=== PATIENT | male | born 1990 | race Caucasian/White ===

== ENCOUNTER 2019-04-17 17:26 | Emergency (ER) | payer MEDICAID, OTHER ==
[~2019-04-17] VITALS: Ht 198.1 cm; Wt 91.0 kg
--- NOTE | 2019-04-17 18:18 | NUR ---
The patient presented for an assessment with parents after he has been having voices for the past 5 days. He feels he has an implant behind his ear. He is cooperative or anxious. Family hx of schizophrenia. He denies command voices.
[2019-04-17 18:32] LABS: BASOPHILS % (AUTO) 0.4 % (0-1); EOSINOPHILS % (AUTO) 0.3 % (0-6); HEMATOCRIT 41.2 % (42.0-52.0); HEMOGLOBIN 14.2 g/dl (14.0-17.9); LYMPHOCYTES # (AUTO) 2.1 X10'3 (1.1-4.8); LYMPHOCYTES % (AUTO) 31.1 % (21-51); MEAN CORPUSCULAR HEMOGLOBIN 33.8 PG (27.0-31.0); MEAN CORPUSCULAR HGB CONC 34.5 g/dL (33.0-36.5); MEAN CORPUSCULAR VOLUME 97.8 FL (78-98); MEAN PLATELET VOLUME 8.5 FL (7.4-10.4); MONOCYTES % (AUTO) 14.3 % (2-12); NEUTROPHILS # (AUTO) 3.6 X10'3 (1.8-7.7); NEUTROPHILS % (AUTO) 53.9 % (42-75); PLATELET COUNT 231 X10'3 (140-440); RED BLOOD COUNT 4.21 X10'6 (4.70-6.10); RED CELL DISTRIBUTION WIDTH 12.9 % (11.5-14.5); WHITE BLOOD COUNT 6.6 X10'3 (4.5-11.0)
[2019-04-17 18:48] LABS: ALANINE AMINOTRANSFERASE 28 U/L (12-78); ALBUMIN 4.4 G/DL (3.4-5.0); ALBUMIN/GLOBULIN RATIO 1.1 (1.1-1.5); ALKALINE PHOSPHATASE 65 IU/L (46-116); ANION GAP 10 (8-16); ASPARTATE AMINO TRANSFERASE 22 U/L (10-37); BILIRUBIN,TOTAL 1.1 MG/DL (0.1-1.0); BLOOD UREA NITROGEN 14 MG/DL (7-18); BUN/CREATININE RATIO 13.6 (5.4-32.0); CHLORIDE 106 MMOL/L (99-107); CREATININE 1.03 MG/DL (0.60-1.10); GLUCOSE 112 MG/DL (70-104); POTASSIUM 3.8 MMOL/L (3.5-5.1); SODIUM 143 MMOL/L (135-145); TOTAL CARBON DIOXIDE 27.3 MMOL/L (24-32); TOTAL PROTEIN 8.4 G/DL (6.4-8.2); eGFR 86 ML/MIN
[2019-04-17 18:58] LABS: ETHANOL < 0.010 GM/DL (0.0-0.010)
[2019-04-17] MEDS ORDERED: LORazepam 1 MG tablet PO ONE (19:45)
[2019-04-17] MEDS ORDERED: QUETIAPINE 200 MG TAB.SR.24H PO ONE (19:45)
[2019-04-17] MEDS ORDERED: quetiapine 100mg tablet PO STA (19:50)
[2019-04-17 19:55] LABS: CLARITY,URINE CLOUDY (Clear); COLOR,URINE YELLOW (Yellow); GLUCOSE, URINE NEGATIVE (Neg); KETONES,URINE TRACE mg/dl (Neg); LEUKOCYTE ESTERASE ,URINE NEGATIVE (Neg); NITRITES, URINE NEGATIVE (Neg); OCCULT BLOOD,URINE NEGATIVE (Neg); PH,URINE 8.5 (4.8-8.0); PROTEIN,URINE NEGATIVE (Neg); UROBILINOGEN,URINE 0.2 E.U/dL (0.2-1.0)
[2019-04-17 20:08] LABS: UA COLLECTION TYPE VOIDED
[2019-04-17 20:13] LABS: BACTERIA,URINE 1+ /HPF (Neg); MUCUS STRANDS FEW /LPF (Neg); RBC,URINE NONE SEEN /HPF (0-2); SQUAMOUS EPITHELIAL CELL,UR FEW /LPF (FEW); WBC,URINE NONE SEEN /HPF (0-4)
[2019-04-17 20:14] LABS: AMORPHOUS PHOSPHATES 4+; SPERM MODERATE /HPF (NEGATIVE)
--- NOTE | 2019-04-17 20:14 | NUR ---
[place] [facility] [place]
[2019-04-17 20:17] LABS: URINE AMPHETAMINE SCREEN POSITIVE (Neg); URINE BARBITUATE SCREEN NEGATIVE (Neg); URINE BENZODIAZEPINES SCREEN NEGATIVE (Neg); URINE CANNABINOID SCREEN POSITIVE (Neg); URINE COCAINE SCREEN NEGATIVE (Neg); URINE METHADONE SCREEN NEGATIVE (Neg); URINE OPIATE SCREEN NEGATIVE (Neg); URINE PHENCYCLIDINE SCREEN NEGATIVE (Neg)
--- NOTE | 2019-04-17 20:32 | NUR ---
pt packet faxed to [facility]
--- NOTE | 2019-04-17 20:41 | NUR ---
The patient is very disorganized and paranoid. He did accept ativan 2mg and Seroquel 200mg. He is very distracted but guarded about the information he is sharing because he does not want to stay here. He told his father that he believes the staff are going to steal his penis. He has no insight and is convinced that he has an implant by his ear and that someone he knows is playing a prank on him.
--- NOTE | 2019-04-17 20:49 | NUR ---
[facility] OFF[facility] CALLED AND THER [facility] NEEDS CONTACT INFORMATION, INSURANCE INFORMATION AND PATIENT'S SOCIAL SECURITY NUMBER. PRIMARY RN SANJEEV DOES NOT WANT TO BOTHER THE PARENTS AT THIS TIME. THE FATHER IS OUTSIDE THE PATIENT'S ROOM ON HIS CELL. PER SANJEEV, THE "PACKET CAN BE UPDATED IN THE AM"
--- NOTE | 2019-04-17 21:00 | NUR ---
[facility] is interviewing the patient
--- NOTE | 2019-04-17 23:11 | NUR ---
New face sheet was provided to [facility]. The patient appears to be sleeping at this time.
--- NOTE | 2019-04-18 01:37 | NUR ---
The patient appears to be sleeping
--- NOTE | 2019-04-18 03:34 | NUR ---
The patient appears to be sleeping
--- NOTE | 2019-04-18 05:14 | NUR ---
The patient appears to be sleeping
--- NOTE | 2019-04-18 07:35 | NUR ---
Patient sleeping supine. No distress observed. Continue to monitor.
--- NOTE | 2019-04-18 08:23 | NUR ---
Patient's mother and father with patient. Continue to monitor.
--- NOTE | 2019-04-18 09:05 | NUR ---
ANNALISA Henderson speaking with patient. Continue to monitor.
--- NOTE | 2019-04-18 09:35 | NUR ---
[facility], speaking with patient's mom and dad. Continue to monitor.
--- NOTE | 2019-04-18 10:15 | NUR ---
[facility] placing patient on a 5150 and advising patient. RN had security stand by to make sure he doesn't run. Continue to monitor.
--- NOTE | 2019-04-18 11:18 | NUR ---
[facility] [place] [phone].
[2019-04-18] MEDS: NICOTINE POLACRILEX 2 MG LOZENGE BC PRN ×2 (14:46→20:00)
--- NOTE | 2019-04-18 18:59 | NUR ---
Patient resting comfortably in bed and is eating dinner. He is updated on POC and wishes to speak with his parents prior to transfer. Father is contacted and transferred to the patient.
--- NOTE | 2019-04-18 20:10 | NUR ---
Patient is resting comfortably with eyes closed in a supine position.
--- NOTE | 2019-04-18 20:50 | NUR ---
[facility] office called with an ETA of 15 minutes for the speedboat driver to [facility]. Patient is currently getting ready for transport.
[2019-04-18 21:11] VITALS: BP 135/68
== END 2019-04-18 21:14 ==
LOC: ER 17:27
DX: F23 Brief psychotic disorder (principal); F90.9 Attention-deficit hyperactivity disorder, unspecified type
CPT/HCPCS: 36415; 80053; 80305; 80320; 81001; 84443; 85025; 90654; 99285